=== PATIENT | female | born 1995 | race Caucasian/White ===

== ENCOUNTER 2020-08-28 08:00 | Outpatient (REF) | payer OTHER, SELFPAY | END 2020-08-28 08:01 | disposition home or self-care (01) | LOC: HO.LAB 08:00 | PROVIDERS: Visit Provider Internal Medicine | DX: Z20.828 Contact with and (suspected) exposure to other viral communicable diseases (principal) | CPT/HCPCS: 87635 ==

== ENCOUNTER 2020-09-14 10:22 | Emergency (ER) | payer OTHER, SELFPAY ==
--- NOTE | 2020-09-14 13:17 | ED_ITS ---
HPI - Nausea/Vomiting/Diarrhea General Chief complaint: Abdominal Pain Stated complaint: vomiting Time Seen by Provider: 09/14/20 13:17 Source: patient Mode of arrival: ambulatory Limitations: no limitations History of Present Illness MD elicited complaint: nausea, vomiting and abdominal pain Onset (ago): day(s) (2) Associated nausea: Yes Associated abdominal pain: Yes Location of pain: diffuse Radiation: diffuse Pain consistency: constant Severity: moderate Quality: cramping Exacerbating factors: none Relieving factors: none Context: possible food poisoning (started after she ate leftover [place]yr[place] food at work) Associated symptoms: loss of appetite and nausea/vomiting (emesis x 4) Related Data Previous Rx's Medication Instructions Recorded ondansetron 4 mg PO Q8H PRN #20 tab 09/14/20 Allergies Allergy/AdvReac Type Severity Reaction Status Date / Time sertraline [Zoloft] Allergy Unknown hives Verified 05/30/19 00:00 Review of Systems Review of Systems: Constitutional : No Weight loss, No Fever, No Chills ENT/Mouth : No sore throat, No Rhinorrhea Eyes: No Swelling, No Redness Cardiovascular : No Chest Pain, No SOB, NoEdema Respiratory : No Cough, No Sputum, No Wheezing Gastrointestinal : Positive Nausea, Positive Vomiting, no Diarrhea, positive abdominal Pain, No Hematochezia, No Melena Genitourinary : No Dysuria, No Urinary Frequency, No Hematuria, No Urgency Musculoskeletal : No joint pain, No Myalgias, No Joint Swelling Skin : No Skin Lesions, No rash Neuro : No Weakness, No Numbness, No Dizziness, No Headache Psych : No Anxiety/Panic, No Depression Heme/Lymph: No Bruising, No Lymphadenopathy Endocrine : No Polyuria, No Polydipsia All other systems reviewed and are negative. Gastrointestinal: Gastrointestinal: Reports nausea PMFSH Past Medical History Attestation statement: The following information was validated with the patient. Medical History (Updated 09/14/20 @ 13:40 by Sanjuanita Stock DO) No known health problems Surgical History (Updated 09/14/20 @ 13:24 by Sanjuanita Stock DO) Hx of appendectomy S/P cholecystectomy Social History Social History (Updated 09/14/20 @ 13:24 by Sanjuanita Stock DO) Alcohol intake: never Smoking Status: Never smoker Use of substances other than those prescribed or required for medical reasons: No Substance Use Type: Marijuana Advance Directives: No Advance Directives Information Provided: No Physical Exam Vital Signs: Vital Signs: Vital Signs Temp Pulse Resp BP Pulse Ox 09/14/20 13:26 98.1 F 80 16 104/33 L 98 09/14/20 13:23 98.1 F 81 16 104/33 L 97 Body Mass Index 28.3 Appearance: Alert. Oriented X3. No acute distress. Eyes: Pupils equal, round and reactive to light. ENT: Pharynx normal. Neck: Normal inspection. Neck supple. CVS: Normal heart rate and rhythm. Pulses normal. Respiratory: No respiratory distress. Breath sounds normal. Abdomen: Soft and mild periumbilical ttp Skin: Skin warm and dry. Normal skin color. Normal skin turgor. Extremities: No lower extremity edema. No calf ttp Neuro: Oriented X 3. No motor deficit. No sensory deficit. Course Course Course Narrative: can tolerate PO states she has to leave due to emergency aware we do not have her full blood work but feels much better MDM - Nausea/Vomiting/Diarrhea MDM Narrative Medical decision making narrative: 25 yo female with diffuse abdominal cramping no diarrhea and vomiting x 4 at this time will need labs, IVF, UA/UPT, IVF and IV zofran/toradol, s/p appendectomy and cholecystectomy - pain is mild and diffuse not localized doubt acute infection, likely food related Lab Data Result diagrams: 09/14/20 14:27 09/14/20 15:40 Labs: Lab Results 09/14/20 09/14/20 09/14/20 Range/Units 14:27 14:27 14:27 WBC 10.9 H (4.8-10.8) X10*3/uL RBC 4.63 (4.20-5.50) X10*6/uL Hgb 14.6 (12.0-16.0) g/dl Hct 43.0 (37-47) % MCV 92.9 (80-98) fL MCH 31.5 (27.0-33.0) pg MCHC 34.0 (31.0-35.0) g/dl RDW 12.0 (11.0-16.0) % Plt Count 293 (160-400) X10*3/uL MPV 10.8 (9.4-12.3) fL Immature Gran % (Auto) 0.3 (0.0-0.4) % Neut % (Auto) 69.4 (45-73) % Lymph % (Auto) 23.6 (20-40) % [place] % (Auto) 5.1 (2-11) % Eos % (Auto) 1.4 (0-4) % Baso % (Auto) 0.2 (0-2) % Lymph # (Auto) 2.6 (1.2-4.9) X10*3/uL [place] # (Auto) 0.6 (0.1-1.2) X10*3/uL Eos # (Auto) 0.2 (0.0-0.4) X10*3/uL Baso # (Auto) 0.0 (0.0-0.2) X10*3/uL Abs Immat Gran (auto) 0.03 (0.00-0.03) X10*3/uL Absolute Neuts (auto) 7.6 (2.0-8.3) X10*3/uL Absolute Nucleated RBC 0.000 (0.0-0.012) X10*3/uL Nucleated RBC % (auto) 0.0 (0.0-0.2) /100WBC Sodium Cancelled Potassium Cancelled Chloride Cancelled Carbon Dioxide Cancelled Anion Gap Cancelled BUN Cancelled Creatinine Cancelled Estim Creat Clear Calc Cancelled Estimated GFR Cancelled Random Glucose Cancelled Calcium Cancelled Magnesium Cancelled Total Bilirubin Cancelled Direct Bilirubin Cancelled AST Cancelled ALT Cancelled Alkaline Phosphatase Cancelled Total Protein Cancelled Albumin Cancelled Lipase Cancelled Urine Color YELLOW Urine Appearance CLEAR Urine pH 6.5 (5.0-8.0) Ur Specific [place] 1.020 (1.005-1.025) Urine Protein NEG (NEG-TRACE) MG/DL Urine Glucose (UA) NEG (NEG) MG/DL Urine Ketones NEG (NEG) MG/DL Urine Blood NEG (NEG) Urine Nitrite NEG (NEG) Ur Leukocyte Esterase NEG (NEG) Urine RBC 0 (0) /HPF Urine WBC 0 (0-4) /HPF Ur Squamous Epith Cells 1+ /LPF Urine Bacteria Not Reportable Urine Test NEGATIVE (NEGATIVE) Discharge Plan Discharge Clinical Impression: Vomiting Qualifiers: Vomiting type: unspecified Vomiting Intractability: non-intractable Nausea presence: with nausea Qualified Code(s): R11.2 - Nausea with vomiting, unspecified Abdominal pain Qualifiers: Abdominal location: generalized Qualified Code(s): R10.84 - Generalized abdominal pain Patient Disposition: Home, Self-Care Instructions: Acute Nausea and Vomiting (ED), Abdominal Pain (ED) Prescriptions: New ondansetron 4 mg tablet,disintegrating 4 mg PO Q8H PRN (Reason: nausea and vomiting) Qty: 20 RF: 0 Stand Alone Forms: Work/School Release
[2020-09-14 13:23] VITALS: BP 104/33; PULSE 81; RESP 16; TEMP 36.7; O2SAT 97; BMI 28.3
[2020-09-14 13:26] VITALS: BP 104/33; PULSE 80; RESP 16; TEMP 36.7; O2SAT 98
[2020-09-14] MEDS: 0.9 % Sodium Chloride 1,000 ML 999 ML IVCONT (14:35)
[2020-09-14] MEDS: ondansetron HCL 4 MG/2 ML VIAL IVPUSH (14:35)
[2020-09-14] MEDS: Ketorolac Tromethamine 30 MG/ML VIAL IVPUSH (14:35)
[2020-09-14 14:41] LABS: MANUAL DIFF FLAG NO
[2020-09-14 14:51] LABS: Basophils Percent Auto 0.2 % (0-2); Eosinophils Absolute Auto 0.2 X10*3/uL (0.0-0.4); Eosinophils Percent Auto 1.4 % (0-4); Hemoglobin 14.6 g/dl (12.0-16.0); Imm Gran Abs Auto 0.03 X10*3/uL (0.00-0.03); Imm Gran Pct Auto 0.3 % (0.0-0.4); Lymphocytes Absolute Auto 2.6 X10*3/uL (1.2-4.9); Lymphocytes Percent Auto 23.6 % (20-40); Mean Corpuscular Hemoglobin 31.5 pg (27.0-33.0); Mean Corpuscular Volume 92.9 fL (80-98); Mean Platelet Volume 10.8 fL (9.4-12.3); Monocytes Absolute Auto 0.6 X10*3/uL (0.1-1.2); Monocytes Percent Auto 5.1 % (2-11); Neutrophils Absolute Auto 7.6 X10*3/uL (2.0-8.3); Neutrophils Percent Auto 69.4 % (45-73); Platelet Count 293 X10*3/uL (160-400); Red Blood Count 4.63 X10*6/uL (4.20-5.50); White Blood Count 10.9 X10*3/uL (4.8-10.8)
[2020-09-14 14:54] LABS: Glucose Urine UA NEG (NEG); Leukocyte Esterase Urine NEG (NEG); Nitrite Urine NEG (NEG); PH 6.5 (5.0-8.0); Urine Blood NEG (NEG); Urine Ketones NEG (NEG); Urine Protein NEG (NEG-TRACE)
[2020-09-14 15:13] LABS: Appearance Urine CLEAR; Color Urine YELLOW
[2020-09-14 15:17] LABS: RBC Urine 0 /HPF (0); Squamous Epithelial Cell Urine 1+ /LPF; WBC Urine 0 /HPF (0-4)
[2020-09-14 15:39] LABS: UPreg QC Valid YES; Urine Pregnancy NEGATIVE (NEGATIVE)
[2020-09-14 16:13] LABS: Alanine Aminotransferase 10 U/L (0-31); Albumin Level 4.2 g/dL (3.5-5.0); Alkaline Phosphatase 82 U/L (39-117); Aspartate Amino Transferase 12 U/L (5-31); Bilirubin Direct < 0.2 mg/dL (0.0-0.5); Bilirubin Total 0.4 mg/dL (0.0-1.0); Total Protein 6.9 g/dL (6.5-8.0)
[2020-09-14 16:14] LABS: Anion Gap 12 (12-20); Blood Urea Nitrogen 9 mg/dL (9-16); Calcium 8.4 mg/dL (8.4-10.2); Carbon Dioxide 25 mmol/L (22-29); Chloride 106 mmol/L (96-108); Creatinine Clr Calc Pharmacy 126.6; Estimated Glomerular Filt Rate > 60; Glucose Random 91 mg/dL (60-115); Lipase 30 U/L (8-78); Potassium 4.4 mmol/l (3.3-5.1); Sodium 139 mmol/L (135-145)
== END 2020-09-14 16:15 | disposition home or self-care (01) ==
PROVIDERS: Emergency Provider Emergency Medicine
DX: R10.84 Generalized abdominal pain (principal); R11.2 Nausea with vomiting, unspecified; R19.7 Diarrhea, unspecified; Z79.899 Other long term (current) drug therapy
CPT/HCPCS: 36415; 80048; 80076; 81003; 81015; 81025; 83690; 83735; 85025; 96361; 96374; 96375; 99284; J1885; J2405

== ENCOUNTER 2020-11-24 14:48 | Outpatient (REF) | payer OTHER, SELFPAY | END 2020-11-24 14:49 | disposition home or self-care (01) | LOC: HO.LAB 14:48 | PROVIDERS: Visit Provider Internal Medicine | DX: Z20.828 Contact with and (suspected) exposure to other viral communicable diseases (principal) | CPT/HCPCS: 36415; C9803; U0003 ==

== ENCOUNTER 2021-11-30 10:36 | Outpatient (REF) | payer OTHER, SELFPAY ==
[2021-11-30 13:30] LABS: Binax Internal Control QC Valid; Binax Now Covid-19 Ag Negative (Negative)
== END 2021-11-30 10:37 | disposition home or self-care (01) ==
LOC: HO.LAB 10:36
PROVIDERS: Visit Provider Internal Medicine
DX: Z20.822 Contact with and (suspected) exposure to COVID-19 (principal)
CPT/HCPCS: C9803

== ENCOUNTER 2022-04-05 13:26 | Outpatient (REF) | payer OTHER, SELFPAY ==
[2022-04-06 09:31] LABS: BV Int Neg Control Negative (Negative); BV Int Pos Control Positive (Positive)
== END 2022-04-05 13:27 | disposition home or self-care (01) ==
LOC: HO.LNP 13:26
PROVIDERS: Visit Provider Hospitalist
DX: N94.10 Unspecified dyspareunia (principal)
CPT/HCPCS: 87480; 87510; 87660

== ENCOUNTER 2022-04-05 16:38 | Outpatient (REF) | payer OTHER, SELFPAY | END 2022-04-05 16:39 | disposition home or self-care (01) | LOC: HO.LAB 16:38 | PROVIDERS: Visit Provider Hospitalist | DX: Z13.89 Encounter for screening for other disorder (principal) ==

== ENCOUNTER 2022-05-02 12:23 | Outpatient (REF) | payer OTHER, SELFPAY ==
[2022-05-02 14:21] LABS: Appearance Urine CLEAR; Color Urine YELLOW; Glucose Urine UA NEG (NEG); Leukocyte Esterase Urine NEG (NEG); Nitrite Urine NEG (NEG); PH 6.5 (5.0-8.0); Specific Gravity - Urine >= 1.030 (1.005-1.025); Urine Blood 2+ (NEG); Urine Ketones 40 MG/DL (NEG); Urine Protein NEG (NEG-TRACE)
[2022-05-02 15:47] LABS: Bacteria Urine TRACE /LPF; RBC Urine 0-2 /HPF (0); Squamous Epithelial Cell Urine TRACE /LPF; WBC Urine 0-2 /HPF (0-4)
[2022-05-02 15:48] LABS: Calcium Oxalate Crystals Urine TRACE /LPF
[2022-05-03 08:33] LABS: HBS Num1 42.66 mIU/mL (0-7.99); HBc Num1 0.14 S/CO (0.00-0.79); HBsAGNum1 0.28 S/CO (0.00-0.99); HIV AB/AG Nonreactive (Nonreactive); HIV Num 1 0.06 S/CO (0.00-0.99); Hepatitis B Core Antibody Nonreactive (Nonreactive); Hepatitis B Surface Antigen Negative (Negative); ~HepC Num1 0.11 S/CO (0.00-0.79); ~Hepatitis B Surface Antibody REACTIVE (Nonreactive); ~Hepatitis C Antibody Nonreactive (Nonreactive)
[2022-05-04 07:49] LABS: Hepatitis A Antibody IgM 0.14 Index (0-0.79); ~Hepatitis A Antibody IgM Nonreactive (Nonreactive)
== END 2022-05-02 12:24 | disposition home or self-care (01) ==
LOC: HO.WFDLDS 12:23
PROVIDERS: Visit Provider Hospitalist
DX: Z00.00 Encounter for general adult medical examination without abnormal findings (principal); Z11.4 Encounter for screening for human immunodeficiency virus [HIV]; Z11.3 Encounter for screening for infections with a predominantly sexual mode of transmission
CPT/HCPCS: 81001; 86704; 86706; 86709; 86803; 87340; 87389

== ENCOUNTER 2022-05-16 12:39 | Outpatient (REF) | payer OTHER, SELFPAY ==
[2022-05-16 13:54] LABS: Appearance Urine HAZY; Color Urine YELLOW; Glucose Urine UA NEG (NEG); Leukocyte Esterase Urine 1+ (NEG); Nitrite Urine NEG (NEG); PH 6.5 (5.0-8.0); Specific Gravity - Urine 1.025 (1.005-1.025); Urine Blood NEG (NEG); Urine Ketones NEG (NEG); Urine Protein 1+ MG/DL (NEG-TRACE)
[2022-05-16 15:20] LABS: CT PCR NOT DETECTED (Not Detect.); NG PCR NOT DETECTED (Not Detect.)
[2022-05-16 18:44] LABS: Calcium Oxalate Crystals Urine TRACE /LPF; RBC Urine 0 /HPF (0); Squamous Epithelial Cell Urine 2+ /LPF
== END 2022-05-16 12:40 | disposition home or self-care (01) ==
LOC: HO.WFDLDS 12:39
PROVIDERS: Visit Provider Hospitalist
DX: Z11.3 Encounter for screening for infections with a predominantly sexual mode of transmission (principal)
CPT/HCPCS: 81001; 87071; 87491; 87591

== ENCOUNTER 2022-06-11 19:05 | Emergency (ER) | payer OTHER, SELFPAY ==
[2022-06-11 19:10] VITALS: BP 122/67; PULSE 77; RESP 14; TEMP 36.8; O2SAT 97; BMI 27.3
--- NOTE | 2022-06-11 20:42 | ED_ITS ---
HPI - General Adult General Chief complaint: Allergic Reaction Stated complaint: allergic reaction on face Time Seen by Provider: 06/11/22 20:41 Source: patient and EMS Mode of arrival: EMS Limitations: no limitations History of Present Illness HPI narrative: 26-year-old female came in by ambulance for evaluation of rash and possible allergic reaction. Started since yesterday diffuse rash on the chest and abdomen and back and bilateral arm patient was seen at [facility] was prescribed cream, patient returned to our emergency department today for worsening of the rash and swelling of her face, no throat swelling, no voice change, no stridor. Patient declined any a change of her daily routine, no new medication was started, did not eat new foods, no change in her detergent or soap, decline contact dermatitis. Patient with history of depression using Lamictal and Wellbutrin with recent increase in her medication but patient been on medication for a long time. Patient currently declined SI or HI or hallucination. Related Data Home Medications Medication Instructions Recorded Confirmed bupropion HCl 75 mg tablet 75 mg PO QAM 02/03/22 04/21/22 clonidine HCl 0.1 mg tablet 0.1 mg PO TID 02/03/22 04/21/22 ibuprofen 800 mg tablet 800 mg PO Q8H PRN pain 02/03/22 04/21/22 lamotrigine 100 mg tablet 100 mg PO DAILY 05/16/22 (Lamictal) Previous Rx's Medication Instructions Recorded omeprazole 20 mg capsule,delayed 20 mg PO DAILY #42 caps 05/16/22 release pramoxine 1 % lotion (Sarna 1 appl topical BID 1 month #237 mL 05/16/22 Sensitive) Allergies Allergy/AdvReac Type Severity Reaction Status Date / Time sertraline [Zoloft] Allergy Unknown hives Verified 05/16/22 14:21 Review of Systems Review of Systems: All other systems are reviewed and are negative Constitutional: Reports as per HPI and Reports no additional constitutional complaints Eyes: Reports as per HPI and Reports no additional eye complaints Reports system reviewed and no additional complaints, except as documented Cardiovascular: Reports as per HPI and Reports no additional cardiovascular complaints Respiratory: Reports as per HPI and Reports no additional respiratory complaints Gastrointestinal: Reports as per HPI and Reports no additional gastrointestinal complaints Genitourinary: Reports no additional female genitourinary complaints Musculoskeletal: Reports no additional musculoskeletal complaints Skin/Breast: Reports system reviewed and no additional complaints, except as docu Psychiatric: Reports no additional psychiatric complaints Endocrine: Reports no additional endocrine complaints Hematologic/Lymphatic: Reports no additional hematologic/lymphatic complaints Allergic/Immunologic: Reports no additional allergic/immunologic complaints Reports system reviewed and no additional complaints, except as documented and Reports Abnormal speech present [facility] Past Medical History Medical History Anxiety Depression No known health problems Surgical History H/O wisdom tooth extraction Hx of appendectomy S/P cholecystectomy Social History Social History Housing: Apartment Alcohol intake: never Patient Tobacco Use Status: Never used Tobacco e-Cigarette/Vaping Use: Never Used Substance Use Type: Marijuana Advance Directives: No Advance Directives Information Provided: No Patient : No service: No Current occupational status: employed 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 Blood pressure normal. Heart rate normal. Respiration rate normal. Temperature normal. Oxygen saturation normal. Appearance: Alert. Oriented X3. No acute distress. Head: Normal external exam. Normocephalic. Atraumatic. No Mcmahan signs noted. No raccoon eyes noted Eyes: PERRLA. EOMI. Conjunctiva and sclera normal. Eyelids normal. ENT: TM's Normal. Pharynx normal. Uvula midline. Moist mucous membranes. No trismus noted. No drooling noted. No muffled voice noted. No stridor, no voice change. Neck: Normal inspection. Neck supple. FROM. No adenopathy. Thyroid Normal. No meningeal signs. No neck mass noted. CVS: Normal heart rate and rhythm. Heart sound normal. No murmurs noted. Pulses normal throughout. Respiratory: No respiratory distress. Painless inspiration. Breath sounds normal. No wheezes/rales/rhonchi noted. Chest nontender. No accessory muscle usage noted or decreased air movement noted. Abdomen: Soft and nontender. Bowel sounds normal in all 4 quadrants. No distention noted. No organomegaly noted. No visible injury noted. Back: No CVA tenderness. Full range of motion noted. Skin: Skin warm and dry. Normal skin color. Normal skin turgor. Small papular rash on neck and upper back. Extremities: No lower extremity edema. Extremities exhibit normal range of motion. Extremities nontender. Neuro: Oriented X 3. Cranial nerve exam: II-XII are grossly intact No motor deficit. No sensory deficit. Reflexes normal. Course Course Course Narrative: 26-year-old female came in for rash and itching since yesterday, no change in her daily routine, no involvement of upper airway, patient feels better after was given 1 dose of Solu-Medrol and IV fluid hydration. Patient with history of depression declined any SI or HI or hallucination. Will discharge the patient with Benadryl p.r.n.. Medical Decision Making Lab Data Lab results reviewed: Yes I reviewed the patient's lab results. Result diagrams: 06/11/22 20:48 06/11/22 20:48 Labs: Lab Results 06/11/22 06/11/22 06/11/22 Range/Units 20:48 20:48 22:06 WBC 8.3 (4.8-10.8) X10*3/uL RBC 4.63 (4.20-5.50) X10*6/uL Hgb 14.2 (12.0-16.0) g/dl Hct 41.7 (37.0-47.0) % MCV 90.1 (80.0-98.0) fL MCH 30.7 (27.0-33.0) pg MCHC 34.1 (31.0-35.0) g/dl RDW 12.3 (11.0-16.0) % Plt Count 348 (160-400) X10*3/uL MPV 10.6 (9.4-12.3) fL Immature Gran % (Auto) 0.1 (0.0-0.4) % Neut % (Auto) 57.6 (45-73) % Lymph % (Auto) 32.5 (20-40) % [place] % (Auto) 7.5 (2-11) % Eos % (Auto) 1.9 (0-4) % Baso % (Auto) 0.4 (0-2) % Lymph # (Auto) 2.7 (1.2-4.9) X10*3/uL [place] # (Auto) 0.6 (0.1-1.2) X10*3/uL Eos # (Auto) 0.2 (0.0-0.4) X10*3/uL Baso # (Auto) 0.0 (0.0-0.2) X10*3/uL Abs Immat Gran (auto) 0.01 (0.00-0.03) X10*3/uL Absolute Neuts (auto) 4.8 (2.0-8.3) x10*3/uL Absolute Nucleated RBC 0.000 (0.0-0.012) X10*3/uL Nucleated RBC % (auto) 0.0 (0.0-0.2) /100WBC Sodium 141 (135-145) mmol/L Potassium 4.0 (3.3-5.1) mmol/L Chloride 110 H (96-108) mmol/L Carbon Dioxide 21 L (22-29) mmol/L Anion Gap 14 (12-20) BUN 9 (9-16) mg/dL Creatinine 0.69 (0.5-1.4) mg/dL Estim Creat Clear Calc 103.6 Estimated GFR > 60 Random Glucose 109 (60-115) mg/dL Calcium 9.2 D (8.4-10.2) mg/dL Total Bilirubin 0.4 (0.0-1.0) mg/dL Direct Bilirubin 0.2 (0.0-0.5) mg/dL AST 17 D (5-31) U/L ALT 18 (0-31) U/L Alkaline Phosphatase 85 (39-117) U/L Total Protein 7.7 (6.5-8.0) g/dL Albumin 4.8 (3.5-5.0) g/dL Urine Color DK YELLOW Urine Appearance CLEAR Urine pH 6.0 (5.0-8.0) Ur Specific [place] >= 1.030 H (1.005-1.025) Urine Protein TRACE (NEG-TRACE) MG/DL Urine Glucose (UA) NEG (NEG) MG/DL Urine Ketones >=80 (NEG) MG/DL Urine Blood NEG (NEG) Urine Nitrite NEG (NEG) Ur Leukocyte Esterase NEG (NEG) Urine Test (NEGATIVE) 06/11/22 Range/Units 22:06 WBC (4.8-10.8) X10*3/uL RBC (4.20-5.50) X10*6/uL Hgb (12.0-16.0) g/dl Hct (37.0-47.0) % MCV (80.0-98.0) fL MCH (27.0-33.0) pg MCHC (31.0-35.0) g/dl RDW (11.0-16.0) % Plt Count (160-400) X10*3/uL MPV (9.4-12.3) fL Immature Gran % (Auto) (0.0-0.4) % Neut % (Auto) (45-73) % Lymph % (Auto) (20-40) % [place] % (Auto) (2-11) % Eos % (Auto) (0-4) % Baso % (Auto) (0-2) % Lymph # (Auto) (1.2-4.9) X10*3/uL [place] # (Auto) (0.1-1.2) X10*3/uL Eos # (Auto) (0.0-0.4) X10*3/uL Baso # (Auto) (0.0-0.2) X10*3/uL Abs Immat Gran (auto) (0.00-0.03) X10*3/uL Absolute Neuts (auto) (2.0-8.3) x10*3/uL Absolute Nucleated RBC (0.0-0.012) X10*3/uL Nucleated RBC % (auto) (0.0-0.2) /100WBC Sodium (135-145) mmol/L Potassium (3.3-5.1) mmol/L Chloride (96-108) mmol/L Carbon Dioxide (22-29) mmol/L Anion Gap (12-20) BUN (9-16) mg/dL Creatinine (0.5-1.4) mg/dL Estim Creat Clear Calc Estimated GFR Random Glucose (60-115) mg/dL Calcium (8.4-10.2) mg/dL Total Bilirubin (0.0-1.0) mg/dL Direct Bilirubin (0.0-0.5) mg/dL AST (5-31) U/L ALT (0-31) U/L Alkaline Phosphatase (39-117) U/L Total Protein (6.5-8.0) g/dL Albumin (3.5-5.0) g/dL Urine Color Urine Appearance Urine pH (5.0-8.0) Ur Specific [place] (1.005-1.025) Urine Protein (NEG-TRACE) MG/DL Urine Glucose (UA) (NEG) MG/DL Urine Ketones (NEG) MG/DL Urine Blood (NEG) Urine Nitrite (NEG) Ur Leukocyte Esterase (NEG) Urine Test NEGATIVE (NEGATIVE) Discharge Plan Discharge Clinical Impression: Rash and nonspecific skin eruption Patient Disposition: Home, Self-Care Instructions: Acute Rash (ED) Prescriptions: No Action bupropion HCl 75 mg tablet 75 mg PO QAM clonidine HCl 0.1 mg tablet 0.1 mg PO TID ibuprofen 800 mg tablet 800 mg PO Q8H PRN (Reason: pain) lamotrigine [Lamictal] 100 mg tablet 100 mg PO DAILY pramoxine [Sarna Sensitive] 1 % lotion 1 appl topical BID 30 Days Qty: 237 1RF omeprazole 20 mg capsule,delayed release(DR/EC) 20 mg PO DAILY Qty: 42 1RF Referrals: Yue Carreon NP [Primary Care Provider] -
[2022-06-11] MEDS: methylPREDNISolone Sod Succ 125 MG/2 ML VIAL IVPUSH (20:53)
[2022-06-11] MEDS: 0.9 % Sodium Chloride 1,000 ML 999 ML IV (20:53)
[2022-06-11 20:54] LABS: MANUAL DIFF FLAG NO
[2022-06-11 20:59] LABS: Basophils Percent Auto 0.4 % (0-2); Eosinophils Absolute Auto 0.2 X10*3/uL (0.0-0.4); Eosinophils Percent Auto 1.9 % (0-4); Hematocrit 41.7 % (37.0-47.0); Hemoglobin 14.2 g/dl (12.0-16.0); Imm Gran Abs Auto 0.01 X10*3/uL (0.00-0.03); Imm Gran Pct Auto 0.1 % (0.0-0.4); Lymphocytes Absolute Auto 2.7 X10*3/uL (1.2-4.9); Lymphocytes Percent Auto 32.5 % (20-40); Mean Corpuscular HGB Conc 34.1 g/dl (31.0-35.0); Mean Corpuscular Hemoglobin 30.7 pg (27.0-33.0); Mean Corpuscular Volume 90.1 fL (80.0-98.0); Mean Platelet Volume 10.6 fL (9.4-12.3); Monocytes Absolute Auto 0.6 X10*3/uL (0.1-1.2); Monocytes Percent Auto 7.5 % (2-11); Neutrophils Absolute Auto 4.8 x10*3/uL (2.0-8.3); Neutrophils Percent Auto 57.6 % (45-73); Platelet Count 348 X10*3/uL (160-400); Red Blood Count 4.63 X10*6/uL (4.20-5.50); Red Cell Distribution Width 12.3 % (11.0-16.0); White Blood Count 8.3 X10*3/uL (4.8-10.8)
[2022-06-11 21:13] LABS: Alanine Aminotransferase 18 U/L (0-31); Albumin Level 4.8 g/dL (3.5-5.0); Alkaline Phosphatase 85 U/L (39-117); Anion Gap 14 (12-20); Aspartate Amino Transferase 17 U/L (5-31); Bilirubin Direct 0.2 mg/dL (0.0-0.5); Bilirubin Total 0.4 mg/dL (0.0-1.0); Blood Urea Nitrogen 9 mg/dL (9-16); Calcium 9.2 mg/dL (8.4-10.2); Carbon Dioxide 21 mmol/L (22-29); Chloride 110 mmol/L (96-108); Creatinine Clr Calc Pharmacy 103.6; Estimated Glomerular Filt Rate > 60; Glucose Random 109 mg/dL (60-115); Sodium 141 mmol/L (135-145); Total Protein 7.7 g/dL (6.5-8.0)
[2022-06-11 22:19] LABS: Appearance Urine CLEAR; Color Urine DK YELLOW; Glucose Urine UA NEG (NEG); Leukocyte Esterase Urine NEG (NEG); Nitrite Urine NEG (NEG); Specific Gravity - Urine >= 1.030 (1.005-1.025); Urine Blood NEG (NEG); Urine Ketones >=80 MG/DL (NEG); Urine Protein TRACE MG/DL (NEG-TRACE)
[2022-06-11 22:22] LABS: UPreg QC Valid YES; Urine Pregnancy NEGATIVE (NEGATIVE)
--- NOTE | 2022-06-11 23:01 | PC.NURSE ---
after pt discharge this RN walked by pt and pt crying visibily upset, this RN asked pt what was wrong pt states no one cares about me, I don't have any friends, i told them all i was here and no one will pick me up this RN attempt to comfort pt and tell her we will figure out transportation for her. pt states, my mom will come get me but i live alone and don't want to go home alone this RN got charge nurse to bedside, pt tells this RN and charge nurse that she is not suicidal and that she follows up with a pyschiartrist out patient. this RN asks pt if she would like us to speak with her mom about staying with her to which pt declined, pt states I just want to go home this RN and Charge nurse asks pt if she would like to stay and be evaluated by [facility], pt denies. this RN and charge nurse walk pt outside and wait for her mom to arrive, pt gets in car safely.
== END 2022-06-11 22:47 | disposition home or self-care (01) ==
PROVIDERS: Emergency Provider Emergency Medicine; PCP Hospitalist
DX: R21 Rash and other nonspecific skin eruption (principal); F12.90 Cannabis use, unspecified, uncomplicated
CPT/HCPCS: 36415; 80053; 81003; 81025; 82248; 85025; 96361; 96374; 99284; J2930

== ENCOUNTER 2022-07-18 08:45 | Outpatient (RCR) | payer OTHER, SELFPAY ==
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
[2022-07-11 12:55] VITALS: BMI 26.2
--- NOTE | 2022-07-11 14:05 | PC.NURSE ---
I met with pt to review treatment plan and schedule. She expressed hesitance around continuing in groups, stating groups are difficult because of dissociative symptoms. She said, I have to mirror with others , and said this means she has to decide who to be depending on who I'm speaking to, and with a lot of people it changes every second . Discussed ways to possibly cope with this, and options for treatment besides PHP if she finds it overstimulating or triggering. Pt agreed to see how she feels in a few days. Tentative discharge date was planned for 07/26/22.
[2022-07-11 14:37] LABS: Amphetamine Screen Urine Not Detected (Not Detect); Barbiturates, Urine Not Detected (Not Detect); Benzodiazepines Screen Urine Not Detected (Not Detect); Cannabinoid Screen Urine POSITIVE (Not Detect); Cocaine Screen Urine Not Detected (Not Detect); Fentanyl, urine Not Detected (Not Detect); Opiate Screen Urine Not Detected (Not Detect); Phencyclidine Screen Urine Not Detected (Not Detect)
--- NOTE | 2022-07-11 14:48 | PC.NURSE ---
I met with pt at her request. Discussed PFML benefits and provided the [place] number for questions about eligibility and access. We also discussed her schedule and reviewed treatment plan.
[2022-07-11 16:43] VITALS: BP 100/70; PULSE 88; TEMP 36.4
--- NOTE | 2022-07-12 10:23 | PC.NURSE ---
Patient was not able to attend the first group. She was crying and talking loud and having difficulty regulating her emotions. Reports trauma sensations. She stated she is tired of being different people and her mood is all over the place. Afraid she is going to have a panic attack in groups. Patient stated when she feels like this she feels she is going to . Patient with much negative thinking. Patient also reports she is dissociating. Reviewed some grounding techniques with the patient. At one point patient stated, I can get out of this if you want me too . I stated I did want her too. She stated just give me 2 seconds and it will be all gone. Patient then proceeded to talk about her friends art projects and felt better afterwards. Patient asked me if it was ok to turn it off and on like a switch . She then proceeded to talk about her nails and felt much better after. Patient wants to try and continue the group work however is unsure if it will help. Patient advised and is currently in the kitchen rescheduling an appointment with her prescriber that she cancelled yesterday to attend [facility].
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
--- NOTE | 2022-07-12 14:36 | PC.NURSE ---
I met with pt to help with scheduling aftercare appointments, as I was informed by Dia, program nurse, that she cancelled her current appt to be in PHP. She was able to make an appt with her med provider (Flores Pope, KELLE) for 08/17/22 at 2:50 via phone. She let me know that her current therapist is leaving [facility], and that she will be assigned a new one. Also, [facility] apparently cancelled her appt with her therapist automatically due to her being in PHP. She attempted to call and schedule an appt with both. She was not able to make an appt with her current therapist before the end of PHP. I offered for her to have a day off of [facility] for this, and she declined. She tried to call [facility] a few times, following prompts that ultimately led to a busy signal or a full voicemail. I told her I would take over with this, as she was growing more anxious. I called and had the same experience (following prompts for chief investment officer, new patient appointments, help with scheduling, until I finally left a message in some sort of general mailbox. I LM asking for a call back to make pt an appt with Stephie, and explained the situation.
--- NOTE | 2022-07-14 08:35 | PC.NURSE ---
I called [facility], where pt's new therapist is supposed to be scheduled, as Vandana, her current therapist is leaving the agency. I spoke to the rn telemetry, who informed me that pt is already scheduled with Stephie Mcelroy, therapist, every at 10am via telehealth (video). She informed me also that Vandana, pt's current therapist, is also at [facility], not at [facility], as pt had thought. As pt called out sick today, I then called her to see if she might want to keep this appointment with Stephie. She said she would keep this appointment, as she usually stops vomiting and feeling as sick within 3 hours.
--- NOTE | 2022-07-14 15:16 | PC.NURSE ---
case opened in treatment team.
--- NOTE | 2022-07-18 14:56 | PC.NURSE ---
I called and left a message for pt's new therapist, Stephie Mcelroy at [facility] ([phone]), asking if pt might be able to be seen twice weekly.
--- NOTE | 2022-07-19 15:16 | PC.NURSE ---
I received a phone message from pt asking for Tiff Walker's phone number. I called pt back and left her this information.
== END 2022-07-18 23:59 | disposition home or self-care (01) ==
LOC: HO.PHPA 08:45
PROVIDERS: Nurse Practitioner Psychiatric/Mental Health; Visit Provider Psychiatry & Neurology Psychiatry
DX: F33.2 Major depressive disorder, recurrent severe without psychotic features (principal); F60.3 Borderline personality disorder; F43.12 Post-traumatic stress disorder, chronic; F41.1 Generalized anxiety disorder; F12.90 Cannabis use, unspecified, uncomplicated
CPT/HCPCS: 80307; 90791; 90853

== ENCOUNTER 2022-08-08 11:07 | Outpatient (REF) | payer OTHER, SELFPAY | END 2022-08-08 11:08 | disposition home or self-care (01) | LOC: HO.SH 11:07 | PROVIDERS: Visit Provider Hospitalist | DX: Z01.118 Encounter for examination of ears and hearing with other abnormal findings (principal); H93.293 Other abnormal auditory perceptions, bilateral | CPT/HCPCS: 92557; 92567; 92588 ==

== ENCOUNTER 2022-10-21 15:58 | Emergency (ER) | payer OTHER, SELFPAY ==
--- NOTE | ~2022-10-21 | CT_ITS ---
EXAMINATION: CT ABDOMEN AND PELVIS WITHOUT CONTRAST CLINICAL INFORMATION: Abdominal pain. Possible hernia. COMPARISON: None TECHNIQUE: Multidetector volumetric imaging was performed from the superior aspect of the liver through the pubic symphysis. Sagittal and coronal reformatted images were obtained on the technologist's workstation. This CT examination was performed using dose optimization techniques as appropriate, variously including the following: *Automated exposure control *Adjustment of mA and/or kV according to patient size (this includes techniques or standardized protocols for targeted exams where dose is matched to indication/reason for exam; i.e. extremities or head) *Use of iterative reconstruction technique DLP: 399 mGy-cm FINDINGS: LUNG BASES: The visualized lung bases are unremarkable. LIVER, GALLBLADDER, AND BILIARY TREE: The liver is normal in size, shape, and attenuation. No focal hepatic lesion or biliary ductal dilatation is present. Status post cholecystectomy. PANCREAS: Unremarkable. SPLEEN: Unremarkable. ADRENAL GLANDS: Unremarkable. KIDNEYS AND URETERS: The kidneys are normal in size, shape, and attenuation. No hydronephrosis, hydroureter, or calculi seen. No perinephric stranding. BLADDER: Unremarkable. GASTROINTESTINAL TRACT: No dilated bowel loops. No bowel wall thickening. No pericolonic inflammatory change. Appendix is not visualized. Suture material in the right lower quadrant and at the cecal base, presumably from prior appendectomy. Correlate with surgical history. No ascites or free air. ABDOMINAL WALL: No significant hernia is appreciated. LYMPH NODES: Normal. VASCULAR: Unremarkable. PELVIC VISCERA: Uterus is anteverted. IUD appears properly positioned. Small 1.6 cm low-density left ovarian structure consistent with a normal dominant follicle. Trace free fluid in the cul-de-sac. OSSEOUS STRUCTURES: No acute fracture or suspicious osseous lesion. CT/CT abdomen pelvis wo IV con IMPRESSION: 1. No abdominal wall hernia identified. 2. No acute intra-abdominal process identified. 3. Status post cholecystectomy.
[2022-10-21 16:13] VITALS: BP 122/76; PULSE 100; RESP 18; TEMP 36.9; O2SAT 97; BMI 26.4
--- NOTE | 2022-10-21 16:14 | ED_ITS ---
HPI - General Adult General Chief complaint: Abdominal Pain Stated complaint: hiatal hernia? trouble breathing. CP Time Seen by Provider: 10/21/22 20:53 Source: patient Mode of arrival: ambulatory Limitations: no limitations Related Data Home Medications Medication Instructions Recorded Confirmed clonidine HCl 0.1 mg tablet 0.05 - 0.1 mg PO TID PRN Anxiety 02/03/22 10/19/22 bupropion HCl 100 mg tablet 100 mg PO DAILY 07/12/22 10/19/22 lorazepam 0.5 mg tablet 0.5 mg PO DAILY PRN Anxiety 07/12/22 10/19/22 olanzapine 5 mg tablet 2.5 mg PO BEDTIME 07/12/22 10/19/22 risperidone 0.5 mg tablet 0.5 mg PO BEDTIME 10/05/22 10/19/22 Previous Rx's Medication Instructions Recorded omeprazole 20 mg capsule,delayed 20 mg PO DAILY #42 caps 06/27/22 release fluticasone propionate 50 2 spray intranasal DAILY 1 month 08/11/22 mcg/actuation nasal #16 grams spray,suspension (Allergy Relief (fluticasone)) cyclobenzaprine 10 mg tablet 10 mg PO TID #90 tabs 08/23/22 ibuprofen 800 mg tablet 800 mg PO Q8H #90 tabs 08/23/22 white petrolatum-mineral oil 56.8 1 appl ophthalmic (eye) BEDTIME #7 08/23/22 %-42.5 % eye ointment (Refresh grams Lacri-Lube) lamotrigine 25 mg tablet 150 mg PO DAILY 3 months #540 tabs 09/27/22 loratadine 10 mg tablet (Allergy 10 mg PO DAILY 3 months #90 tabs 09/27/22 Relief (loratadine)) Allergies Allergy/AdvReac Type Severity Reaction Status Date / Time sertraline [Zoloft] Allergy Unknown hives Verified 10/19/22 09:21 [facility] Past Medical History Medical History Anxiety Depression No known health problems Surgical History H/O wisdom tooth extraction Hx of appendectomy S/P cholecystectomy Social History Social History Household Members: None Housing: Apartment Alcohol intake: never Patient Tobacco Use Status: Never used Tobacco e-Cigarette/Vaping Use: Never Used Second Hand Smoke Exposure: No Substance Use Type: Marijuana Advance Directives: No Advance Directives Information Provided: No service: No Current occupational status: employed 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 Patient is a 27 year old female presenting to the emergency department with epigastric pain. CBC, CMP, HCG, and abdominal CT ordered. Patient placed back in the waiting room pending results and bed availability. Patient seen and evaluated by Dr. Connor who created and completed a separate note. Medical Decision Making Lab Data Result diagrams: 10/21/22 18:39 10/21/22 18:39 Labs: Lab Results 10/21/22 10/21/22 Range/Units 18:39 18:39 WBC 8.9 (4.8-10.8) X10*3/uL RBC 4.31 (4.20-5.50) X10*6/uL Hgb 13.6 (12.0-16.0) g/dl Hct 40.1 (37.0-47.0) % MCV 93.0 (80.0-98.0) fL MCH 31.6 (27.0-33.0) pg MCHC 33.9 (31.0-35.0) g/dl RDW 12.1 (11.0-16.0) % Plt Count 346 (160-400) X10*3/uL MPV 9.9 (9.4-12.3) fL Immature Gran % (Auto) 0.1 (0.0-0.4) % Neut % (Auto) 72.2 (45-73) % Lymph % (Auto) 20.8 (20-40) % [place] % (Auto) 5.3 (2-11) % Eos % (Auto) 1.4 (0-4) % Baso % (Auto) 0.2 (0-2) % Lymph # (Auto) 1.9 (1.2-4.9) X10*3/uL [place] # (Auto) 0.5 (0.1-1.2) X10*3/uL Eos # (Auto) 0.1 (0.0-0.4) X10*3/uL Baso # (Auto) 0.0 (0.0-0.2) X10*3/uL Abs Immat Gran (auto) 0.01 (0.00-0.03) X10*3/uL Absolute Neuts (auto) 6.4 (2.0-8.3) x10*3/uL Absolute Nucleated RBC 0.000 (0.0-0.012) X10*3/uL Nucleated RBC % (auto) 0.0 (0.0-0.2) /100WBC Sodium 136 (135-145) mmol/L Potassium 4.3 (3.3-5.1) mmol/L Chloride 102 (96-108) mmol/L Carbon Dioxide 28 (22-29) mmol/L Anion Gap 10 L (12-20) BUN 11 (9-16) mg/dL Creatinine 0.69 (0.5-1.4) mg/dL Estim Creat Clear Calc 101.0 Estimated GFR > 60 Random Glucose 110 (60-115) mg/dL Calcium 9.9 D (8.4-10.2) mg/dL Magnesium 2.0 (1.6-2.6) mg/dL Total Bilirubin 0.3 (0.0-1.0) mg/dL AST 10 (5-31) U/L ALT 6 (0-31) U/L Alkaline Phosphatase 75 (39-117) U/L Total Protein 7.3 (6.5-8.0) g/dL Albumin 4.6 (3.5-5.0) g/dL Beta HCG, Quant < 2 mIU/mL Discharge Plan Discharge Clinical Impression: Gastritis Patient Disposition: Home, Self-Care Instructions: Gastritis (ED) Prescriptions: No Action fluticasone propionate [Allergy Relief (fluticasone)] 50 mcg/actuation spray,suspension 2 spray intranasal DAILY 30 Days Qty: 16 4RF Rx Instructions: administer 1 spray into each nostril daily hold for dry lips or nose edges loratadine [Allergy Relief (loratadine)] 10 mg tablet 10 mg PO DAILY 90 Days Qty: 90 2RF lamotrigine 25 mg tablet 150 mg PO DAILY 90 Days Qty: 540 1RF olanzapine 5 mg Tablet 2.5 mg PO BEDTIME Label Comments: Patient has not started. Rx Instructions: Take 1/2 tab at Bedtime for one week then one tab at Bedtime. bupropion HCl 100 mg Tablet 100 mg PO DAILY lorazepam 0.5 mg Tablet 0.5 mg PO DAILY PRN (Reason: Anxiety) Label Comments: Patient has not picked up from pharmacy. clonidine HCl 0.1 mg tablet 0.05 - 0.1 mg PO TID PRN (Reason: Anxiety) Rx Instructions: Take 1/2 tab to 1 tab PRN TID omeprazole 20 mg capsule,delayed release(DR/EC) 20 mg PO DAILY Qty: 42 1RF Label Comments: Patient did not pickup at pharmacy. risperidone 0.5 mg tablet 0.5 mg PO BEDTIME cyclobenzaprine 10 mg tablet 10 mg PO TID Qty: 90 2RF Refresh Lacri-Lube 56.8-42.5 % ointment 1 appl ophthalmic (eye) BEDTIME Qty: 7 5RF ibuprofen 800 mg tablet 800 mg PO Q8H Qty: 90 2RF Referrals: Yue Carreon NP [Primary Care Provider] - Interventions: ED Discharge Assessment Last Done: 10/21/22 21:35 Discharge Date/Time: 10/21/22 21:36
[2022-10-21 18:48] LABS: MANUAL DIFF FLAG NO
[2022-10-21 18:53] LABS: Basophils Percent Auto 0.2 % (0-2); Eosinophils Absolute Auto 0.1 X10*3/uL (0.0-0.4); Eosinophils Percent Auto 1.4 % (0-4); Hematocrit 40.1 % (37.0-47.0); Hemoglobin 13.6 g/dl (12.0-16.0); Imm Gran Abs Auto 0.01 X10*3/uL (0.00-0.03); Imm Gran Pct Auto 0.1 % (0.0-0.4); Lymphocytes Absolute Auto 1.9 X10*3/uL (1.2-4.9); Lymphocytes Percent Auto 20.8 % (20-40); Mean Corpuscular HGB Conc 33.9 g/dl (31.0-35.0); Mean Corpuscular Hemoglobin 31.6 pg (27.0-33.0); Mean Platelet Volume 9.9 fL (9.4-12.3); Monocytes Absolute Auto 0.5 X10*3/uL (0.1-1.2); Monocytes Percent Auto 5.3 % (2-11); Neutrophils Absolute Auto 6.4 x10*3/uL (2.0-8.3); Neutrophils Percent Auto 72.2 % (45-73); Platelet Count 346 X10*3/uL (160-400); Red Blood Count 4.31 X10*6/uL (4.20-5.50); Red Cell Distribution Width 12.1 % (11.0-16.0); White Blood Count 8.9 X10*3/uL (4.8-10.8)
--- OUTSIDE RECORDS SUMMARY | 2022-10-21 18:59 | XMS_ITS ---
:1995 Author Care Team Providers Name Role Phone Shonna Koch Primary Care Provider Unavailable Allergies Code Code System Name Reaction Severity Status Onset 69988 RxNorm Zoloft ? ? Active ? Medications Name Status Start Date Stop Date ? ? aripiprazole 10 mg tablet Active ? Not av ailable aripiprazole 15 mg tablet Active ? Not av ailable Take 1 tablet by mouth every night aripiprazole 5 mg tablet Completed ? 020 bupropion HCl XL 150 mg 24 hr tablet, extended release Active ? Not available TAKE 1 tablet by MOUTH every morning buspirone 10 mg tablet Active ? Not avail able TAKE 2 TABLETS BY MOUTH IN THE MORNING AND TAKE 2 TABLETS AT NI GHT buspirone 15 mg tablet Active ? Not avail able Take 1 tablet by mouth twice a day buspirone 30 mg tablet Active ? Not avail able Take 1 tablet by mouth twice a day chlorhexidine gluconate 0.12 % mouthwash Completed ? 09/10/2021 fill cup TO 1/2 OUNCE line SWISH AND ho ld IN MOUTH FOR 2 minutes THEN spit OUT THREE TIMES DAILY AFTER MEALS citalopram 20 mg tablet Active ? Not avai lable citalopram 40 mg tablet Active ? Not avai lable Take 1 tablet by mouth every night clindamycin HCl 300 mg capsule Completed ? 1 TAKE 1 CAPSULE BY MOUTH every 6 hours UNTIL GONE escitalopram 10 mg tablet Completed ? 2020 TAKE 1 TABLET BY MOUTH DAILY FOR one WEEK THEN start THE 20mg t ablets escitalopram 20 mg tablet Active ? Not av ailable Take 1 tablet by mouth once a day - start after finishing the 1 0mg tablets fluconazole 150 mg tablet Completed ? 2020 TAKE 1 TABLET BY MOUTH ONCE hydroxyzine HCl 25 mg tablet Completed ? ibuprofen 800 mg tablet Completed ? 09/10/20 TAKE 1 TABLET BY MOUTH every 8 hours NEEDED FOR PAIN WITH fo od metronidazole 500 mg tablet Completed ? 08/21 TAKE 1 TABLET BY MOUTH TWICE DAILY FOR 7 DAYS, DO not drink alcohol while taking this medication nitrofurantoin monohydrate/macrocrystals 100 mg capsule Complete d ? 09/10/2021 TAKE 1 capsule(s) BY MOUTH EVERY 12 HOURS FOR 5 DAYS ondansetron 4 mg disintegrating tablet Completed ? 09/10/2021 DISSOLVE 1 TABLET BY MOUTH EVERY 8 HOURS NEEDED FOR NAUSEA A ND VOMITING oxycodone-acetaminophen 5 mg-325 mg tablet Completed ? 09/10/2021 TAKE 1 TABLET BY MOUTH every 4 hours NEEDED FOR PAIN. DO not operate heavy machinery while taking this medication prazosin 1 mg capsule Completed ? 07/08/2019 prochlorperazine maleate 10 mg tablet Completed ? 07/08/2019 Tessalon Perles 100 mg capsule Completed ? 1 1-2 capsules three times a day as needed for cough (max 6 day) Truvada 200 mg-300 mg tablet Completed ? 11/2019 Vitamin D3 125 mcg (5,000 unit) tablet Completed ? 09/10/2021 Vitamin D3 50 mcg (2,000 unit) capsule Completed ? 09/10/2021 Take 1 capsule by mouth once a day for low vitamin D level Problems Name Status Onset Date Source ? 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 Procedures Date Name Performed by ? ? Extraction of [place] Tooth Information n ot available 09/10/2021 XR, Finger(s), 2 or More View [facility] [address] [place] [address] (Work Place) Results Lab Results Date Name Specimen Result Interpretation Description Value Range Status Address ? 01/19/2020 Rapid Flu (A+B) ? Flu negative ? ? [facility]: [address] [facility] 07/08/2019 Mononucleosis, ? Rains negative ? ? [facility]: Heterophile Ab, [address] [facility], Blood [place] 07/08/2019 Rapid Strep Group a, ? Strep negative ? ? [facility]: Throat [address] [facility] Past Encounters Encounter Date Diagnosis Provider 09/10/2021 Swelling of Finger of Left Hand; Yazmin Capellan, REAL TIME ANALYST: [address] [facility], Pain in Finger of Left Hand; [place] [address], Ph. Fracture of Distal Phalanx of [phone] Finger Social History Tobacco Smoking Status Never Smoker Vaccine List Vaccine Type COVID-19, mRNA, LNP-S, PF, 30 mcg/0.3 mL dose (Sounday) 02/14/2021 03/09/2021 Hep B, unspecified formulation 1996 MMR 1997 Plan of Care Reminders Provider Appointments None recorded. ? ? Lab None recorded. ? ? Referral None recorded. ? ? Procedures None recorded. ? ? Surgeries None recorded. ? ? Imaging None recorded. ? ? Vitals 09/10/2021 02:15PM Established Patient Blood Pressure 102/64 mm[Hg] 01/19/2020 11:35AM Established Patient Blood Pressure 109/59 mm[Hg] 07/08/2019 09:20AM New Patient Blood Pressure 103/72 mm[Hg]
[2022-10-21 19:14] LABS: Alanine Aminotransferase 6 U/L (0-31); Albumin Level 4.6 g/dL (3.5-5.0); Alkaline Phosphatase 75 U/L (39-117); Anion Gap 10 (12-20); Aspartate Amino Transferase 10 U/L (5-31); Bilirubin Total 0.3 mg/dL (0.0-1.0); Blood Urea Nitrogen 11 mg/dL (9-16); Calcium 9.9 mg/dL (8.4-10.2); Carbon Dioxide 28 mmol/L (22-29); Chloride 102 mmol/L (96-108); Estimated Glomerular Filt Rate > 60; Glucose Random 110 mg/dL (60-115); HCG Quantitative < 2 mIU/mL; Potassium 4.3 mmol/L (3.3-5.1); Sodium 136 mmol/L (135-145); Total Protein 7.3 g/dL (6.5-8.0)
--- NOTE | 2022-10-21 21:14 | ED.ABDPAIN ---
HPI - Abdominal Pain General Chief Complaint: Abdominal Pain Stated Complaint: hiatal hernia? trouble breathing. CP Time Seen by Provider: 10/21/22 20:53 Source: patient Mode of arrival: ambulatory Limitations: no limitations History of Present Illness HPI narrative: Patient is a 27-year-old female presents today with having epigastric pain nausea vomiting. Patient has a long history of marijuana use. Claims that this is not related to her sudden onset of nausea vomiting. [facility]. Came in for further evaluation. There is no fever no chills no cough no congestion or upper respiratory symptoms. No change in bowel movement. Patient is vaccinated for COVID. Feels very anxious has a long history of anxiety disorder. Related Data Home Medications Medication Instructions Recorded Confirmed clonidine HCl 0.1 mg tablet 0.05 - 0.1 mg PO TID PRN Anxiety 02/03/22 10/19/22 bupropion HCl 100 mg tablet 100 mg PO DAILY 07/12/22 10/19/22 lorazepam 0.5 mg tablet 0.5 mg PO DAILY PRN Anxiety 07/12/22 10/19/22 olanzapine 5 mg tablet 2.5 mg PO BEDTIME 07/12/22 10/19/22 risperidone 0.5 mg tablet 0.5 mg PO BEDTIME 10/05/22 10/19/22 Previous Rx's Medication Instructions Recorded omeprazole 20 mg capsule,delayed 20 mg PO DAILY #42 caps 06/27/22 release fluticasone propionate 50 2 spray intranasal DAILY 1 month 08/11/22 mcg/actuation nasal #16 grams spray,suspension (Allergy Relief (fluticasone)) cyclobenzaprine 10 mg tablet 10 mg PO TID #90 tabs 08/23/22 ibuprofen 800 mg tablet 800 mg PO Q8H #90 tabs 08/23/22 white petrolatum-mineral oil 56.8 1 appl ophthalmic (eye) BEDTIME #7 08/23/22 %-42.5 % eye ointment (Refresh grams Lacri-Lube) lamotrigine 25 mg tablet 150 mg PO DAILY 3 months #540 tabs 09/27/22 loratadine 10 mg tablet (Allergy 10 mg PO DAILY 3 months #90 tabs 09/27/22 Relief (loratadine)) Allergies Allergy/AdvReac Type Severity Reaction Status Date / Time sertraline [Zoloft] Allergy Unknown hives Verified 10/19/22 09:21 Review of Systems Review of Systems Positive abdominal pain in the epigastric area Positive nausea Yes all other systems are reviewed and are negative [facility] Past Medical History Attestation statement: The following information was validated with the patient. 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 Oriented X3. No acute distress. Eyes: Pupils equal, round and reactive to light. ENT: Pharynx normal. Neck: Normal inspection. Neck supple. No lymph nodes noted. No crepitus CVS: Normal heart rate and rhythm. Pulses normal. Normal S1 and S2 Respiratory: No respiratory distress. Breath sounds normal. No Wheezing. No rales Abdomen: Soft and nontender. No rigidity. No distention. good BS x4 Skin: Skin warm and dry. Normal skin color. Normal skin turgor. Extremities: No lower extremity edema. Neurovascular intact to all extremities. No Lacerations. No Rash Neuro: Oriented X 3. No motor deficit. No sensory deficit. Moving all extermities. No slurred speech MDM - Abdominal Pain MDM Narrative Medical decision making narrative: Patient's LFTs are normal. Status post cholecystectomy. CT scan of the abdomen is grossly negative for any acute evidence of obstruction, abscess, perforation, hernia. Patient well appearing. Abdominal exam is soft nontender. Tolerating fluids here in the emergency department. Appear very anxious given reassurance told to follow up on an outpatient basis. Will start patient on a PPI. In stable condition with discharge Patient already on a PPI. Patient did not want any nausea medication. She is being discharged Medical Records Attestation: I reviewed the patient's medical records. Lab Data Attestation: I reviewed the patient's lab results. Result diagrams: 10/21/22 18:39 10/21/22 18:39 Labs: Lab Results 10/21/22 10/21/22 Range/Units 18:39 18:39 WBC 8.9 (4.8-10.8) X10*3/uL RBC 4.31 (4.20-5.50) X10*6/uL Hgb 13.6 (12.0-16.0) g/dl Hct 40.1 (37.0-47.0) % MCV 93.0 (80.0-98.0) fL MCH 31.6 (27.0-33.0) pg MCHC 33.9 (31.0-35.0) g/dl RDW 12.1 (11.0-16.0) % Plt Count 346 (160-400) X10*3/uL MPV 9.9 (9.4-12.3) fL Immature Gran % (Auto) 0.1 (0.0-0.4) % Neut % (Auto) 72.2 (45-73) % Lymph % (Auto) 20.8 (20-40) % [place] % (Auto) 5.3 (2-11) % Eos % (Auto) 1.4 (0-4) % Baso % (Auto) 0.2 (0-2) % Lymph # (Auto) 1.9 (1.2-4.9) X10*3/uL [place] # (Auto) 0.5 (0.1-1.2) X10*3/uL Eos # (Auto) 0.1 (0.0-0.4) X10*3/uL Baso # (Auto) 0.0 (0.0-0.2) X10*3/uL Abs Immat Gran (auto) 0.01 (0.00-0.03) X10*3/uL Absolute Neuts (auto) 6.4 (2.0-8.3) x10*3/uL Absolute Nucleated RBC 0.000 (0.0-0.012) X10*3/uL Nucleated RBC % (auto) 0.0 (0.0-0.2) /100WBC Sodium 136 (135-145) mmol/L Potassium 4.3 (3.3-5.1) mmol/L Chloride 102 (96-108) mmol/L Carbon Dioxide 28 (22-29) mmol/L Anion Gap 10 L (12-20) BUN 11 (9-16) mg/dL Creatinine 0.69 (0.5-1.4) mg/dL Estim Creat Clear Calc 101.0 Estimated GFR > 60 Random Glucose 110 (60-115) mg/dL Calcium 9.9 D (8.4-10.2) mg/dL Magnesium 2.0 (1.6-2.6) mg/dL Total Bilirubin 0.3 (0.0-1.0) mg/dL AST 10 (5-31) U/L ALT 6 (0-31) U/L Alkaline Phosphatase 75 (39-117) U/L Total Protein 7.3 (6.5-8.0) g/dL Albumin 4.6 (3.5-5.0) g/dL Beta HCG, Quant < 2 mIU/mL Discharge Plan Discharge Clinical Impression: Gastritis Patient Disposition: Home, Self-Care Instructions: Gastritis (ED) Prescriptions: No Action fluticasone propionate [Allergy Relief (fluticasone)] 50 mcg/actuation spray,suspension 2 spray intranasal DAILY 30 Days Qty: 16 4RF Rx Instructions: administer 1 spray into each nostril daily hold for dry lips or nose edges loratadine [Allergy Relief (loratadine)] 10 mg tablet 10 mg PO DAILY 90 Days Qty: 90 2RF lamotrigine 25 mg tablet 150 mg PO DAILY 90 Days Qty: 540 1RF olanzapine 5 mg Tablet 2.5 mg PO BEDTIME Label Comments: Patient has not started. Rx Instructions: Take 1/2 tab at Bedtime for one week then one tab at Bedtime. bupropion HCl 100 mg Tablet 100 mg PO DAILY lorazepam 0.5 mg Tablet 0.5 mg PO DAILY PRN (Reason: Anxiety) Label Comments: Patient has not picked up from pharmacy. clonidine HCl 0.1 mg tablet 0.05 - 0.1 mg PO TID PRN (Reason: Anxiety) Rx Instructions: Take 1/2 tab to 1 tab PRN TID omeprazole 20 mg capsule,delayed release(DR/EC) 20 mg PO DAILY Qty: 42 1RF Label Comments: Patient did not pickup at pharmacy. risperidone 0.5 mg tablet 0.5 mg PO BEDTIME cyclobenzaprine 10 mg tablet 10 mg PO TID Qty: 90 2RF Refresh Lacri-Lube 56.8-42.5 % ointment 1 appl ophthalmic (eye) BEDTIME Qty: 7 5RF ibuprofen 800 mg tablet 800 mg PO Q8H Qty: 90 2RF Referrals: Yue Carreon NP [Primary Care Provider] -
== END 2022-10-21 21:36 | disposition home or self-care (01) ==
PROVIDERS: Physician Assistant Medical; Emergency Provider Emergency Medicine Emergency Medical Services; PCP Hospitalist
DX: K29.70 Gastritis, unspecified, without bleeding (principal); R10.13 Epigastric pain; R11.2 Nausea with vomiting, unspecified; Z79.899 Other long term (current) drug therapy
CPT/HCPCS: 36415; 74176; 80053; 83735; 84702; 85025; 99282; 99283

== ENCOUNTER 2022-12-15 12:46 | Outpatient (REF) | payer OTHER, SELFPAY ==
[2022-12-15 13:49] LABS: MANUAL DIFF FLAG NO
[2022-12-15 13:53] LABS: Basophils Percent Auto 0.3 % (0-2); Eosinophils Absolute Auto 0.2 X10*3/uL (0.0-0.4); Eosinophils Percent Auto 2.5 % (0-4); Hematocrit 41.6 % (37.0-47.0); Hemoglobin 14.2 g/dl (12.0-16.0); Imm Gran Abs Auto 0.03 X10*3/uL (0.00-0.03); Imm Gran Pct Auto 0.5 % (0.0-0.4); Lymphocytes Absolute Auto 2.2 X10*3/uL (1.2-4.9); Lymphocytes Percent Auto 36.2 % (20-40); Mean Corpuscular HGB Conc 34.1 g/dl (31.0-35.0); Mean Corpuscular Hemoglobin 31.1 pg (27.0-33.0); Mean Corpuscular Volume 91.2 fL (80.0-98.0); Mean Platelet Volume 10.7 fL (9.4-12.3); Monocytes Absolute Auto 0.4 X10*3/uL (0.1-1.2); Monocytes Percent Auto 6.7 % (2-11); Neutrophils Absolute Auto 3.3 x10*3/uL (2.0-8.3); Neutrophils Percent Auto 53.8 % (45-73); Platelet Count 291 X10*3/uL (160-400); Red Blood Count 4.56 X10*6/uL (4.20-5.50); Red Cell Distribution Width 12.1 % (11.0-16.0); White Blood Count 6.1 X10*3/uL (4.8-10.8)
[2022-12-15 15:12] LABS: Alanine Aminotransferase 20 U/L (0-31); Albumin Level 4.1 g/dL (3.5-5.0); Alkaline Phosphatase 61 U/L (39-117); Anion Gap 12 (12-20); Aspartate Amino Transferase 18 U/L (5-31); Bilirubin Total 0.4 mg/dL (0.0-1.0); Blood Urea Nitrogen 5 mg/dL (9-16); Calcium 8.8 mg/dL (8.4-10.2); Carbon Dioxide 25 mmol/L (22-29); Chloride 108 mmol/L (96-108); Estimated Glomerular Filt Rate > 60; Glucose Random 92 mg/dL (60-115); Iron 70 mcg/dL (30-160); Percent Iron Saturation 31 % (15-50); Potassium 4.4 mmol/L (3.3-5.1); Sodium 141 mmol/L (135-145); Total Iron Binding Capacity 223 mcg/dL (228-428); Total Protein 6.5 g/dL (6.5-8.0); Unsaturated Iron Binding 153 ug/dL
[2022-12-15 15:30] LABS: Free T4 (Free Thyroxine) 0.88 ng/dL (0.71-1.85); Thyroid Stimulating Hormone 0.91 uIU/mL (0.32-4.0)
[2022-12-15 15:38] LABS: Folate 9.7 ng/mL (> or = 4.0); Vitamin B12 371 pg/mL (200-900)
[2022-12-17 04:29] LABS: Prolactin 12.4 ng/mL
[2022-12-17 05:04] LABS: Triiodothyronine T3 Total 111 ng/dL (76-181)
[2022-12-22 08:02] LABS: Testosterone, Total 25 ng/dL (2-45)
== END 2022-12-15 12:47 | disposition home or self-care (01) ==
LOC: HO.WFDLDS 12:46
PROVIDERS: Visit Provider Family Medicine
DX: Z00.00 Encounter for general adult medical examination without abnormal findings (principal); L65.9 Nonscarring hair loss, unspecified; E03.9 Hypothyroidism, unspecified
CPT/HCPCS: 36415; 80053; 82607; 82746; 83540; 84146; 84402; 84403; 84439; 84443; 84480; 85025